=== PATIENT | female | born 1995 | race Caucasian/White ===

== ENCOUNTER 2019-06-24 22:38 | Emergency (ER) | payer OTHER, MEDICAID, SELFPAY ==
[2019-06-24 23:00] VITALS: BP 116/75; PULSE 95; RESP 19; TEMP 37.1; O2SAT 97
--- NOTE | 2019-06-24 23:19 | ED.SKABFB ---
HPI - Skin/Abscess/Foreign Bdy General Chief complaint: Skin/Abscess/Foreign Body Stated complaint: states abscess on right leg Time Seen by Provider: 06/24/19 22:39 Source: patient Mode of arrival: Ambulatory Limitations: no limitations History of Present Illness HPI narrative: 24F smoker with history of methamphetamine use presents with the chief complaint of an abscess on her right leg. She states it has been there since she was given an injection at another facility about a week ago. She states that she has been getting pus out of it and squeezing frequently. She denies systemic symptoms such as fever, chills, N/V. She admits to pain with palpation. She states it is a bit better than it was a few days ago. complaint: abscess/boil Onset (ago): day(s) Tetanus up to date: yes Location: RLE Severity: moderate Quality: burning and aching Pain Consistency: constant Relieving factors: none Exacerbating factors: palpation Context: other Associated symptoms: denies other symptoms Treatments prior to arrival: attempted to drain pus at home Related Data Home Medications Medication Instructions Recorded Confirmed quetiapine [Seroquel] 100 mg PO HS #0 05/25/16 Previous Rx's Medication Instructions Recorded doxycycline hyclate 100 mg PO BID #20 tab 06/24/19 Allergies Allergy/AdvReac Type Severity Reaction Status Date / Time divalproex sodium Allergy Unknown Unverified 06/04/17 12:42 [From DEPAKOTE] oxcarbazepine Allergy Unknown Unverified 06/04/17 12:42 [From TRILEPTAL] Review of Systems Constitutional Constitutional: Denies chills, Denies fatigue, Denies fever(s), Denies frequent falls, Denies lethargy and Denies weakness Eyes Eyes: Denies change in vision, Denies eye discharge, Denies irritation and Denies loss of vision ENT Ears, Nose, Mouth, and Throat: Denies change in voice, Denies dizziness, Denies neck pain, Denies sore throat and Denies throat swelling Cardiovascular Cardiovascular: Denies chest pain, Denies irregular heart rhythm, Denies lightheadedness, Denies palpitations, Denies dyspnea, Denies dyspnea on exertion and Denies orthopnea Respiratory Respiratory: Denies cough, Denies dyspnea, Denies dyspnea on exertion and Denies wheezing Gastrointestinal Gastrointestinal: Denies abdominal pain, Denies change in bowel habits, Denies diarrhea, Denies nausea and Denies vomiting Genitourinary Genitourinary: Denies hematuria, Denies flank pain, Denies urinary incontinence and Denies urinary urgency Musculoskeletal Musculoskeletal: Denies back pain, Denies muscle weakness, Denies neck pain, Denies numbness and Denies tingling Integumentary/Breasts Skin/Breast: Denies pruritus, Reports erythema, Denies rash, Reports skin pain, Reports skin swelling, Reports sores and Reports wounds Neurologic Neurologic: Denies behavioral changes, Denies confusion, Denies dizziness, Denies frequent falls, Denies loss of vision, Denies numbness, Denies tingling and Denies weakness Psychiatric Psychiatric: Denies anxiety, Denies behavioral changes, Denies confusion, Denies depression, Denies homicidal ideation and Denies suicidal ideation Endocrine Endocrine: Denies fatigue, Denies flushing and Denies palpitations Hematologic/Lymphatic Hematologic/Lymphatic: Denies easy bruising Allergic/Immunologic Allergic/Immunologic: Denies urticaria, Denies throat swelling and Denies wheezing Patient History Social History Smoking Status: Smoker, status unknown Smoking Status: Current every day smoker Substance Use Type: methamphetamine Exam Narrative Exam Narrative: GENERAL: [24] year old patient appears stated age. Thin, tearful HEAD: Atraumatic. Normocephalic. EYES: Pupils equal round and reactive. Extraocular motions intact. No scleral icterus. No injection or drainage. ENT: Nose without bleeding, purulent drainage. Throat without erythema, tonsillar hypertrophy or exudate. Airway patent. NECK: Trachea midline. Non tender CARDIOVASCULAR: Regular rate and rhythm without murmurs, gallops, or rubs. RESPIRATORY: Clear to auscultation. Breath sounds equal bilaterally. No wheezes, rales, or rhonchi. GASTROINTESTINAL: Abdomen soft, non-tender, nondistended. EXTREMITIES: No edema or joint tenderness. BACK: Nontender without deformity or crepitance. No flank tenderness. NEURO: AOx3. SKIN: Right lateral thigh with 2 x 3 cm of erythema and induration with spontaneously draining central core, no ongoing fluctuance and some surrounding erythema. Medial thigh with 0.5 cm area of erythema with a small scab, no induration or fluctuance. Right elbow with dry, scaly, erythematous area that patient states had been draining. Initial Vital Signs Initial Vital Signs: Vital Signs Temperature 98.7 F 06/24/19 23:00 Pulse Rate 95 H 06/24/19 23:00 Respiratory Rate 19 06/24/19 23:00 Blood Pressure 116/75 06/24/19 23:00 Pulse Oximetry 97 06/24/19 23:00 Procedures Abscess I/D I&D #1: Site: lower extremity Side (if applicable): right Local Anesthetic: lidocaine 1% and with bicarb Amount of anesthesia used (mL): 4 Technique: incised with #11 blade Amount of fluid expressed (mL): 3 Irrigation: No Packing used?: none Course Orders Ordered: ED Orders 06/24/19 22:53 Wound Culture and Gram Stain Stat Discontinued Medications Doxycycline Hyclate (Vibramycin) 100 mg PO NOW ONE Stop: 06/24/19 23:00 Last Admin: 06/24/19 23:33 Dose: 100 mg Documented by: HAKAN Lidocaine/Sodium Bicarbonate (Buffered Lidocaine 10 Ml Syr) 10 ml INJ NOW ONE Stop: 06/24/19 22:40 Vital Signs Vital signs: Vital Signs - 8 hr 06/24/19 23:00 06/24/19 23:35 Temperature 98.7 F Pulse Rate 95 H 88 Respiratory Rate 19 18 Blood Pressure 116/75 Blood Pressure [Left Arm] 121/71 Pulse Oximetry 97 97 Discharge Plan Departure Patient Disposition: Home Clinical Impression: Abscess of leg, right Discharge Date/Time: 06/24/19 23:53 Instructions: DI for Skin Abscess Activity Restrictions/Additional Instructions: *You have been diagnosed with [ spontaneously draining right thigh abscess with minimal cellulitis ] *What to do: *Take medications as directed *Follow up with your primary care provider in 2-3 days, call for an appointment. Let them know you were seen in the Emergency Department and that we ask that you be seen in follow up *Return to ER if you should have any new, worsening or concerning symptoms Prescriptions: New doxycycline hyclate 100 mg tablet 100 mg PO BID Qty: 20 RF: 0 No Action quetiapine [Seroquel] 100 MG tablet 100 mg PO HS Qty: 0 RF: 0 Referrals: [facility] [Outside]
[2019-06-24] MEDS: DOXYCYCLINE HYCLATE 100 MG TABLET PO (23:33)
[2019-06-24 23:35] VITALS: BP 121/71; PULSE 88; RESP 18; O2SAT 97
== END 2019-06-24 23:53 | disposition home or self-care (01) ==
PROVIDERS: Emergency Provider Emergency Medicine
DX: L02.415 Cutaneous abscess of right lower limb (principal); F15.20 Other stimulant dependence, uncomplicated
CPT/HCPCS: 10060; 87070; 87075; 87077; 87147; 87186; 87205; 99283